=== PATIENT | male | born 1965 | race Caucasian/White ===

== ENCOUNTER 2017-09-16 15:53 | Emergency (ER) | payer SELFPAY ==
[2017-09-16 16:49] LABS: APPEARANCE CLEAR (CLEAR); BILIRUBIN NEGATIVE (NEGATIVE); COLOR YELLOW (YELLOW); GLUCOSE NEGATIVE (NEGATIVE); KETONE NEGATIVE (NEGATIVE); NITRITE NEGATIVE (NEGATIVE); PROTEIN NEGATIVE (NEGATIVE); SPECIFIC GRAVITY 1.015 (1.005-1.020); UROBILINOGEN NORMAL (NORMAL)
== END 2017-09-16 17:45 | disposition home or self-care (01) ==
LOC: D.ER 15:53
PROVIDERS: Emergency Medicine
DX: S16.1XXA Strain of muscle, fascia and tendon at neck level, initial encounter (principal); V43.52XA Car driver injured in collision with other type car in traffic accident, initial encounter; Y93.89 Activity, other specified; Y92.410 Unspecified street and highway as the place of occurrence of the external cause; S20.211A Contusion of right front wall of thorax, initial encounter; I10 Essential (primary) hypertension

== ENCOUNTER 2017-10-05 12:13 | Emergency (ER) | payer SELFPAY ==
[2017-10-05 13:44] LABS: BASOPHILS 0.2 % (0-2); HEMATOCRIT 41.7 % (42.0-54.0); HEMOGLOBIN 14.3 g/dL (13.5-17.5); LYMPHOCYTES 26.2 % (15-50); MCH 33.2 pg (26.0-34.0); MCHC 34.3 g/dL (31.0-37.0); MCV 96.8 fL (80.0-100.0); MEAN PLATELET VOLUME 8.8 fL (7.4-10.4); MONOCYTES 9.1 % (2-11); NEUTROPHILS 62.5 % (40-80); PLATELET COUNT 304 10x3/uL (130-400); RBC 4.31 10x6/uL (4.20-6.10); RDW 12.6 % (11.5-14.5); WBC 6.6 10x3/uL (4.8-10.8)
[2017-10-05 14:27] LABS: APPEARANCE CLEAR (CLEAR); BACTERIA FEW /hpf (NONE SEEN); BILIRUBIN NEGATIVE (NEGATIVE); COLOR STRAW (YELLOW); EPITHELIAL CELLS OCC /hpf (0-5); GLUCOSE NEGATIVE (NEGATIVE); KETONE NEGATIVE (NEGATIVE); NITRITE NEGATIVE (NEGATIVE); PROTEIN NEGATIVE (NEGATIVE); RED CELLS - URINE 0-5 /hpf (0-5); SPECIFIC GRAVITY 1.015 (1.005-1.020); UROBILINOGEN NORMAL (NORMAL); WHITE CELLS - URINE RARE /hpf (0-5)
== END 2017-10-05 15:42 | disposition home or self-care (01) ==
LOC: D.ER 12:13
PROVIDERS: Emergency Medicine; Nurse Practitioner Family
DX: M54.9 Dorsalgia, unspecified (principal); R19.4 Change in bowel habit; I10 Essential (primary) hypertension

== ENCOUNTER 2020-12-22 16:29 | Emergency (ER) | payer SELFPAY ==
[~2020-12-22] VITALS: Ht 177.8 cm; Wt 127.3 kg
[2020-12-22 16:38] VITALS: BP 135/71; Ht 177.8 cm; Wt 127.3 kg
[2020-12-22] MEDS ORDERED: COREG6.25 MG PO (16:48)
[2020-12-22] MEDS ORDERED: DIOVAN160 MG PO (16:51)
[2020-12-22] MEDS ORDERED: NORVASC10 MG PO (16:51)
[2020-12-22] MEDS ORDERED: XANAX XR 1 MG TA1 MG PO (16:52)
[2020-12-22 18:35] LABS: BASOPHILS 0.2 % (0-2); EOSINOPHILS 2.9 % (0-7); HEMATOCRIT 40.6 % (42.0-54.0); HEMOGLOBIN 13.6 g/dL (13.5-17.5); IMMATURE GRANULOCYTES 0.2 % (0-5); LYMPHOCYTE ABS# 1.77 10x3/uL (1.32-3.57); LYMPHOCYTES 28.8 % (15-50); MCH 32.3 pg (26.0-34.0); MCHC 33.5 g/dL (31.0-37.0); MCV 96.4 fL (80.0-100.0); MEAN PLATELET VOLUME 8.3 fL (7.4-10.4); MONOCYTES 12.4 % (2-11); NEUTROPHIL ABS# 3.41 10x3/uL (1.78-5.38); NEUTROPHILS 55.5 % (40-80); PLATELET COUNT 260 10x3/uL (130-400); RBC 4.21 10x6/uL (4.20-6.10); RDW 12.9 % (11.5-14.5); WBC 6.1 10x3/uL (4.8-10.8)
[2020-12-22 18:50] LABS: APTT 24.5 SECONDS (22.8-39.4); INR 1.03 (0.85-1.17); PROTIME 12.4 SECONDS (11.6-15.0)
[2020-12-22 18:51] LABS: ANION GAP 10.4 mmol/L (8-16); CALCIUM 8.5 mg/dL (8.5-10.1); CARBON DIOXIDE 28.3 mmol/L (21.0-32.0); CREATININE - SERUM 1.3 mg/dL (0.6-1.3); POTASSIUM - SERUM 3.7 mmol/L (3.5-5.1)
[2020-12-22 18:53] LABS: BILIRUBIN NEGATIVE (NEGATIVE); KETONE NEGATIVE (NEGATIVE); NITRITE NEGATIVE (NEGATIVE); UROBILINOGEN NORMAL mg/dL (< 2)
[2020-12-22 18:56] LABS: ALBUMIN 3.4 g/dL (3.4-5.0); BILIRUBIN - TOTAL 0.12 mg/dL (0.2-1.3); MAGNESIUM - SERUM 1.9 mg/dL (1.8-2.4)
[2020-12-22] MEDS ORDERED: ZANAFLEX4 MG PO (19:25)
[2020-12-22] MEDS ORDERED: HYDROCODON-ACE1 EAC7 PO (19:25)
== END 2020-12-22 20:05 | disposition home or self-care (01) ==
LOC: D.ER 16:29
PROVIDERS: Family Medicine
DX: S16.1XXA Strain of muscle, fascia and tendon at neck level, initial encounter (principal); V49.40XA Driver injured in collision with unspecified motor vehicles in traffic accident, initial encounter; S20.219A Contusion of unspecified front wall of thorax, initial encounter; S60.229A Contusion of unspecified hand, initial encounter; S09.90XA Unspecified injury of head, initial encounter; S39.012A Strain of muscle, fascia and tendon of lower back, initial encounter; S63.502A Unspecified sprain of left wrist, initial encounter; S29.012A Strain of muscle and tendon of back wall of thorax, initial encounter; I10 Essential (primary) hypertension

== ENCOUNTER 2020-12-23 15:29 | Emergency (ER) | payer SELFPAY ==
[~2020-12-23] VITALS: Ht 177.8 cm; Wt 129.5 kg
[~2020-12-23 15:29] MED LIST: COREG6.25 MG PO; DIOVAN160 MG PO; HYDROCODON-ACE1 EAC7 PO; NORVASC10 MG PO; XANAX XR 1 MG TA1 MG PO; ZANAFLEX4 MG PO
[2020-12-23 15:39] VITALS: BP 132/97; Ht 177.8 cm; Wt 129.5 kg
== END 2020-12-23 16:58 | disposition home or self-care (01) ==
LOC: D.ER 15:29
DX: R51.9 Headache, unspecified (principal); F07.81 Postconcussional syndrome

== ENCOUNTER 2020-12-25 07:36 | Emergency (ER) | payer OTHER ==
[~2020-12-25] VITALS: Ht 177.8 cm; Wt 129.5 kg
[2020-12-25 07:42] VITALS: BP 134/82; Ht 177.8 cm; Wt 129.5 kg
[2020-12-25] MEDS ORDERED: TORADOL10 MG PO (09:49)
== END 2020-12-25 10:25 | disposition home or self-care (01) ==
LOC: D.ER 07:36
DX: R51.9 Headache, unspecified (principal); F07.81 Postconcussional syndrome; I10 Essential (primary) hypertension